=== PATIENT | female | born 1985 | race Native Hawaiian/Other Pacific Islander ===

== ENCOUNTER 2017-12-28 09:05 | Emergency (ER) | payer OTHER ==
[2017-12-28 10:24] LABS: Basophils % (Auto) 0.5 % (0.0-1.8); Eosinophils # (Auto) 0.1 K/mm3 (0.0-0.4); Hematocrit 38.8 % (30.3-42.9); Hemoglobin 13.1 gm/dl (10.1-14.3); Lymphocytes # (Auto) 1.6 K/mm3 (1.2-5.4); Lymphocytes % (Auto) 15.7 % (13.4-35.0); Mean Corpuscular HGB Conc 34 % (30-34); Mean Corpuscular Hemoglobin 29 pg (28-32); Mean Corpuscular Volume 85 fl (79-97); Monocytes # (Auto) 0.6 K/mm3 (0.0-0.8); Monocytes % (Auto) 6.3 % (0.0-7.3); Platelet Count 204 K/mm3 (140-440); Red Blood Count 4.56 M/mm3 (3.65-5.03); Red Cell Distribution Width 13.9 % (13.2-15.2)
[2017-12-28 10:29] LABS: Bilirubin,Urine NEG (Negative); Blood,Urine NEG (Negative); Color,Urine Yellow (Yellow); Mucus,Urine FEW /HPF; Protein,Urine <15 mg/dL mg/dL (Negative); Urobilinogen,Urine < 2.0 mg/dL (<2.0)
[2017-12-28 10:30] LABS: WBC,Urine > 182.0 /HPF (0.0-6.0)
[2017-12-28 10:33] LABS: BUN/Creatinine Ratio 23; Blood Urea Nitrogen 9 mg/dL (7-17); Calcium 9.2 mg/dL (8.4-10.2); Hemolysis Index 5
--- NOTE | 2017-12-28 11:34 | Ultrasound Report ---
OB ULTRASOUND History well being, absence of heart tones. Technique: Transabdominal ultrasound with Doppler interrogation. Comparison: None at this facility. Gestation: Single Position: Breech Amniotic Fluid: Within normal limits Placenta: Fundal Placental Grade: 0 Heart Rate: 0 BPM Cervical length: 3.3 cm (Normal > 3 cm) BPD: 2.9 cm = 15 w 2 d HC: 11.7 cm = 15 w 5 d AC: 10.8 cm = 16 w 5 d FL: 2.0 cm = 16 w 0 d HC/AC Ratio: 1.08 Cephalic Index: 71.7 Estimated Weight: 152 grams Clinical age = 16 w 5 d EDC: 06/09/18 US Gest. Age = 16 w 0 d EDC: 06/14/18 IMPRESSION: demise.
--- NOTE | 2017-12-28 11:42 | Emergency Department Report ---
ED Female HPI - General Chief complaint: OB/Uterine Contractions Stated complaint: POSS MISCARRIAGE Time Seen by Provider: 12/28/17 11:39 Source: patient, family Mode of arrival: Ambulatory Limitations: No Limitations - History of Present Illness Initial comments: This is a 32-year-old female here reports that she has been seen by Dr. 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 She said he did hand-held ultrasound today and there were no heart rate detected so he told her to schedule an appointment to return but she works at [employer] and they did ultrasound on her and there were no heart tone. She says she came to the hospital to have an ultrasound just to verify. Patient is not having any urinary burning, frequency or urgency. Denies any nausea or vomiting. Denies any vaginal bleeding or discharge. Denies any back pain. Denies any abdominal pain. Patient said she doesn't know if there is any movement of the baby she said sometimes she thinks she feels that but definitely not as much activity as before but she says she doesn't now and seems to be confused about it. Patient and family is in the room with her and she seems to be tearful. Patient had 2 previous that were complicated but she said her babies are fine. She is 3 and para 2. MD Complaint: other (no heart rate detected at Dr. Rodolfo Perez's office on ultrasound yesterday and she says she works at [employer] and they did ultrasound this morning and there were no heart tones detected so she decided to come to the emergency room) Severity scale (0 -10): 0 Are you Now?: Yes (16 weeks with no heart tone) Last Menstrual Period: 08/13/17 EDC: 05/20/18 Associated Symptoms: denies: vaginal discharge, vaginal bleeding, abdominal pain , nausea/vomiting, fever/chills, headaches, loss of appetite, dysuria, hematuria , rash, seizure, shortness of breath, syncope, weakness - Related Data Sexually active: Yes : 3 Para: 2 Previous Rx's Medication Instructions Recorded Last Taken Type Nitrofurantoin Monohyd/M-Cryst 100 mg PO Q12H 7 Days #14 capsule 12/28/17 Unknown Rx [Macrobid 100 mg Capsule] Allergies Allergy/AdvReac Type Severity Reaction Status Date / Time Penicillins Allergy Hives Verified 12/28/17 09:18 Sulfa (Sulfonamide Allergy Unknown Verified 12/28/17 09:18 Antibiotics) ED Review of Systems ROS: Stated complaint: POSS MISCARRIAGE Other details as noted in HPI Constitutional: denies: chills, fever Eyes: denies: eye pain, eye discharge, vision change ENT: denies: throat pain Respiratory: denies: cough, shortness of breath, SOB with exertion, SOB at rest , stridor, wheezing Cardiovascular: denies: chest pain, palpitations, edema, syncope Gastrointestinal: denies: abdominal pain, nausea, vomiting, diarrhea, constipation, hematemesis, melena, hematochezia Genitourinary: denies: urgency, dysuria, frequency, hematuria, discharge, dyspareunia Musculoskeletal: denies: back pain, joint swelling, arthralgia Skin: denies: rash, lesions Neurological: denies: headache, weakness ED Past Medical Hx - Past Medical History Previous Medical History?: Yes Additional medical history: Crohn's, Uterus abnormality, Placenta previa, pre- eclampsia (2nd ), miscarriage x 3 - Surgical History Past Surgical History?: Yes - Family History Family history: hypertension - Social History Smoking Status: Never Smoker Substance Use Type: None - Medications Home Medications: Home Medications Medication Instructions Recorded Confirmed Last Taken Type Nitrofurantoin Monohyd/M-Cryst 100 mg PO Q12H 7 Days #14 capsule 12/28/17 Unknown Rx [Macrobid 100 mg Capsule] ED Physical Exam - General Limitations: No Limitations General appearance: alert, in no apparent distress - Head Head exam: Present: atraumatic, normocephalic, normal inspection - Eye Eye exam: Present: normal appearance, PERRL, EOMI Pupils: Present: normal accommodation - ENT ENT exam: Present: normal exam, normal orophraynx, mucous membranes moist - Neck Neck exam: Present: normal inspection, full ROM. Absent: tenderness, lymphadenopathy - Respiratory Respiratory exam: Present: normal lung sounds bilaterally. Absent: respiratory distress, chest wall tenderness - Cardiovascular Cardiovascular Exam: Present: normal rhythm, tachycardia, normal heart sounds. Absent: systolic murmur, diastolic murmur - GI/Abdominal GI/Abdominal exam: Present: soft, normal bowel sounds, other (unsure if she has any movement she says she is not certain). Absent: distended, tenderness , guarding, rebound, rigid, organomegaly, mass, bruit, pulsatile mass, hernia - Extremities Exam Extremities exam: Present: normal inspection, full ROM, normal capillary refill , other (no clubbing, cyanosis or edema. +2 pulses to all extremities and no neurovascular compromise). Absent: tenderness, pedal edema, joint swelling, calf tenderness - Back Exam Back exam: Present: normal inspection, full ROM, CVA tenderness (L), other ( ambulates without any difficulties). Absent: tenderness, CVA tenderness (R), muscle spasm, paraspinal tenderness, vertebral tenderness, rash noted - Neurological Exam Neurological exam: Present: alert, oriented X3, normal gait - Psychiatric Psychiatric exam: Present: normal affect, normal mood - Skin Skin exam: Present: warm, dry, intact, normal color. Absent: rash ED Course Vital Signs 12/28/17 09:13 Temperature 98.5 F Pulse Rate 109 H Respiratory 18 Rate Blood Pressure 140/88 O2 Sat by Pulse 98 Oximetry Vital Signs 12/28/17 12/28/17 09:13 12:38 Temperature 98.5 F 98.5 F Pulse Rate 109 H 91 H Respiratory 18 16 Rate Blood Pressure 140/88 Blood Pressure 116/75 [Right] O2 Sat by Pulse 98 100 Oximetry - Reevaluation(s) Reevaluation #1: 12/28/17 12:32 Patient did not want any medication. She is stable throughout ED course with no change in assessment. ED Medical Decision Making - Lab Data Result diagrams: 12/28/17 09:58 12/28/17 09:58 Ultrasound OB transabdominal and Patient: FERNANDO CONN MR#: [id number] : 1985 Acct:[id number] Age/Sex: 32 / F ADM Date: 12/28/17 Loc: ED Attending Dr: Ordering Physician: ED MD BEATRICE Date of Service: 12/28/17 Procedure(s): US OB >= 14 weeks Fetus Accession Number(s): [id number] cc: ED MD BEATRICE OB ULTRASOUND History well being, absence of heart tones. Technique: Transabdominal ultrasound with Doppler interrogation. Comparison: None at this facility. Gestation: Single Position: Breech Amniotic Fluid: Within normal limits Placenta: Fundal Placental Grade: 0 Heart Rate: 0 BPM Cervical length: 3.3 cm (Normal > 3 cm) BPD: 2.9 cm = 15 w 2 d HC: 11.7 cm = 15 w 5 d AC: 10.8 cm = 16 w 5 d FL: 2.0 cm = 16 w 0 d HC/AC Ratio: 1.08 Cephalic Index: 71.7 Estimated Weight: 152 grams Clinical age = 16 w 5 d EDC: 06/09/18 US Gest. Age = 16 w 0 d EDC: 06/14/18 IMPRESSION: demise. Transcribed By: TTR Dictated By: GERALD MUNIZ JR, MD Electronically Authenticated By: GERALD MUNIZ JR, MD Signed Date/Time: 12/28/171122 DD/ 20 TD/TT: 12/28/171122 - Radiology Data Radiology results: report reviewed Patient had transabdominal ultrasound with Doppler interrogation and this was dictated by radiologist and report reviewed by myself. See report below Patient: FERNANDO CONN MR#: [id number] : 1985 Acct:[id number] Age/Sex: 32 / F ADM Date: 12/28/17 Loc: ED Attending Dr: Ordering Physician: JENNIFER BARRON MD Date of Service: 12/28/17 Procedure(s): US OB >= 14 weeks Fetus Accession Number(s): [id number] cc: JENNIFER BARRON MD OB ULTRASOUND History well being, absence of heart tones. Technique: Transabdominal ultrasound with Doppler interrogation. Comparison: None at this facility. Gestation: Single Position: Breech Amniotic Fluid: Within normal limits Placenta: Fundal Placental Grade: 0 Heart Rate: 0 BPM Cervical length: 3.3 cm (Normal > 3 cm) BPD: 2.9 cm = 15 w 2 d HC: 11.7 cm = 15 w 5 d AC: 10.8 cm = 16 w 5 d FL: 2.0 cm = 16 w 0 d HC/AC Ratio: 1.08 Cephalic Index: 71.7 Estimated Weight: 152 grams Clinical age = 16 w 5 d EDC: 06/09/18 US Gest. Age = 16 w 0 d EDC: 06/14/18 IMPRESSION: demise. Transcribed By: TTR Dictated By: GERALD MUNIZ JR, MD Electronically Authenticated By: GERALD MUNIZ JR, MD Signed Date/Time: 12/28/171122 DD/ 20 TD/TT: 12/28/171122 - Medical Decision Making ED course: This is a 32-year-old female who is 3 and para 2 and she reports she is [address] weeks [address] Gerald Perez who is her [employer] yesterday and he did Doppler ultrasound with heart tone monitor and said that there were no heart tone and requested that she comes back for appointment but patient says she works at [employer] and she had ultrasound done to work today and there were no heart tone. She states that she is here to have ultrasound done for reevaluation. Her family is in the room with her and she appears to be tearful prior to ultrasound be done. She is not having any other symptoms related to . Spoke with Dr. Andrews is the attending physician about this case. I examined patient and she is stable and abdominal exam is normal. She is not having any vaginal bleeding and, back pain, urinary burning, frequency or urgency. Her urinalysis shows that she has positive urinary tract infection with positive leukocyte Estrace and white count, CBC and BMP is normal positive quantitative. Ultrasound OB transabdominal greater than 14 weeks was dictated by radiology and resolved reviewed by myself and shows patient with IUP without any heart tone. Laboratory results and ultrasound results was discussed the patient and she voices understanding of results she is very tearful. Emotional support given and family's care for emotional support. Patient did not want any medication. I discussed with her that she has a urinary tract infection and will need to be on antibiotic. She voiced understanding. A/P 1: demise at 16 weeks-no heart tone on transabdominal ultrasound OB. I spoke with Dr. Gerald Perez and he wants patient to call his office to schedule an appointment to see him so they can set up procedure for induction to remove fetus. I discussed this is patient and she'll call him today. 2: Urinary tract infection in woman with demise-patient will be placed on Macrobid. Positive UA for infection. Urine culture sent Patient educated on diagnosis, medication and need to follow-up with Dr. Perez to call today to schedule appointment to see him this week to arrange for procedure. She voices understanding. Patient is stable, vital signs are stable she is afebrile. She is tearful and emotional support given. Her family is around her. Patient given prescription for Bactrim DS and she didn't want any medication for anxiety just in case she becomes anxious later. 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 I also discussed with its very important that she call Dr. Perez's office to schedule an appointment to see him so they can talk about situation and schedule appointment for induction. She voiced understanding and discharged home with her family in stable condition. - Differential Diagnosis demise, transient decrease activity d/t sleep, mat. sedative, Critical care attestation.: If time is entered above; I have spent that time in minutes in the direct care of this critically ill patient, excluding procedure time. ED Disposition Clinical Impression: demise, less than 22 weeks UTI (urinary tract infection) Qualifiers: Urinary tract infection type: acute cystitis Hematuria presence: without hematuria Qualified Code(s): N30.00 - Acute cystitis without hematuria Disposition: DC- TO HOME OR SELFCARE Is pt being admited?: No Does the pt Need Aspirin: No Condition: Stable Instructions: Intrauterine Demise (ED), Urinary Tract Infection in Women (ED) Additional Instructions: call Dr. Gerald Perez office today to schedule an appointment for follow-up visit and to set up a time for procedure. Take Macrobid for urinary tract infection Increase her fluid intake Please return to the emergency room if he developed abdominal pain, cramping in and her vaginal bleeding, fever and or chills, nausea and vomiting. Prescriptions: Nitrofurantoin Monohyd/M-Cryst [Macrobid 100 mg Capsule] 100 mg PO Q12H 7 Days # 14 capsule Referrals: GERALD PEREZ MD [Staff Physician] - 12/29/17 Forms: Work/School Release Form(ED), Accompanied Note
[2017-12-28 12:39] VITALS: BP 116/75
== END 2017-12-28 12:59 | disposition home or self-care (01) ==
LOC: ED 09:05
DX: O36.4XX2 Maternal care for intrauterine death, fetus 2 (principal); O23.42 Unspecified infection of urinary tract in pregnancy, second trimester; K50.90 Crohn's disease, unspecified, without complications; Z3A.16 16 weeks gestation of pregnancy; Z88.0 Allergy status to penicillin; Z88.2 Allergy status to sulfonamides
CPT/HCPCS: 36415; 76805; 80048; 81001; 84702; 85025; 87076; 87086; 87186; 99284